=== PATIENT | female | born 1965 ===

== ENCOUNTER 2020-12-02 10:00 | Inpatient (IN) | payer OTHER ==
[~2020-12-02] VITALS: Ht 157.5 cm; Wt 59.9 kg
[2020-12-02] MEDS ORDERED: CRESTOR10 MG PO (13:34)
[2020-12-05] MEDS ORDERED: PROCTO-MED HC28 GM (08:30)
== END 2020-12-07 14:16 | disposition home or self-care (01) | DRG 743 ==
LOC: OB/GYN 12-04 07:00 → O/R 12-04 09:00 → OB/GYN 12-04 10:00
PROVIDERS: ADMIT Specialist; ATTEND Specialist
PROC: 0UT20ZZ Resection of Bilateral Ovaries, Open Approach (ICD-10-PCS; 2020-12-04)
PROC: 0UT70ZZ Resection of Bilateral Fallopian Tubes, Open Approach (ICD-10-PCS; 2020-12-04)
PROC: 0UT90ZZ Resection of Uterus, Open Approach (ICD-10-PCS; principal; 2020-12-04 07:00)
DX: D25.1 Intramural leiomyoma of uterus (principal); N94.89 Other specified conditions associated with female genital organs and menstrual cycle; N83.292 Other ovarian cyst, left side; N88.8 Other specified noninflammatory disorders of cervix uteri; N83.8 Other noninflammatory disorders of ovary, fallopian tube and broad ligament